=== PATIENT | male | born 1940 | race Caucasian/White ===

== ENCOUNTER → 2016-08-01 | Outpatient (CLI) | payer MEDICARE, OTHER ==
[~2016-08-01] MED LIST: ASPIRIN E.C. 8181 MG PO; PLAVIX 75MG TAB75 MG PO; PRINIVIL20 MG PO; ZOCOR 40MG40 MG PO
== END ==
LOC: COL.RAD 12:45
DX: G31.89 Other specified degenerative diseases of nervous system (principal)

== ENCOUNTER → 2016-10-21 | Outpatient (CLI) | payer MEDICARE, OTHER | LOC: COL.RAD 10:17 | DX: Z13.6 Encounter for screening for cardiovascular disorders (principal) ==

== ENCOUNTER 2017-01-08 13:35 | Emergency (ER) | payer MEDICARE, OTHER ==
[~2017-01-08] VITALS: Ht 180.3 cm; Wt 90.9 kg
[2017-01-08 13:40] VITALS: BP 132/78; TEMP 98.1
[2017-01-08 14:58] LABS: BASO % 0.3 % (0.0-2.0); EOS # 0.1 (0.0-0.7); EOS % 1.2 % (0-4.0); GRAN # 8.9 (1.4-6.5); GRAN % 80.7 % (42.2-75.2); HEMOGLOBIN 15.1 g/dl (13.5-18.0); LYMPH # 1.2 (1.2-3.4); MEAN CELL VOLUME 87 fl (80.0-100.0); MEAN CORPUSCULAR HEMOGLOBIN 30 pg (27.0-31.0); MEAN CORPUSCULAR HGB CONC 34 g/dl (33.0-37.0); MEAN PLATELET VOLUME 10.5 fl (7.4-10.4); MONO # 0.7 (0.1-0.6); MONO % 6.3 % (1.7-9.3); PLATELET COUNT 181 K/mm3 (130-400); RED BLOOD COUNT 5.04 M/mm3 (4.20-5.60)
[2017-01-08 15:07] LABS: PARTIAL THROMBOPLASTIN TIME 25.7 SECONDS (26.0-37.0)
[2017-01-08 15:10] LABS: ADJUSTED CALCIUM 9.3 mg/dL (8.4-10.2); ALANINE AMINOTRANSFERASE 34 U/L (21-72); ALBUMIN 4.2 gm/dL (3.5-5.0); ALKALINE PHOSPHATASE 62 U/L (50-136); ANION GAP 9 mmol/L (7-16); BILIRUBIN,TOTAL 0.6 mg/dL (0.0-1.0); BLOOD UREA NITROGEN 14 mg/dL (9-20); CALCIUM 9.5 mg/dL (8.4-10.2); CARBON DIOXIDE 25 mmol/L (22-30); CHLORIDE 106 mmol/L (98-107); CREATININE, serum 0.99 mg/dL (0.66-1.25); GLUCOSE 97 mg/dL (74-106); POTASSIUM 3.9 mmol/L (3.4-5.0); SODIUM 140 mmol/L (137-145); TOTAL PROTEIN 6.8 gm/dL (6.4-8.2)
[2017-01-08 15:22] LABS: TROPONIN-I < 0.012 ng/mL (0.000-0.034)
[2017-01-08 16:08] VITALS: PULSE 70
== END 2017-01-08 16:09 | disposition home or self-care (01) ==
LOC: COL.ER 13:35
PROVIDERS: Emergency Medicine
DX: S06.0X0A Concussion without loss of consciousness, initial encounter (principal); S46.911A Strain of unspecified muscle, fascia and tendon at shoulder and upper arm level, right arm, initial encounter; I10 Essential (primary) hypertension; E78.5 Hyperlipidemia, unspecified; Z23 Encounter for immunization; Z79.02 Long term (current) use of antithrombotics/antiplatelets; Z98.890 Other specified postprocedural states; W01.198A Fall on same level from slipping, tripping and stumbling with subsequent striking against other object, initial encounter; Y92.009 Unspecified place in unspecified non-institutional (private) residence as the place of occurrence of the external cause

== ENCOUNTER → 2017-10-08 | Outpatient (CLI) | payer MEDICARE, OTHER ==
[2017-10-08 11:35] LABS: CREATININE, serum 0.98 mg/dL (0.66-1.25)
== END ==
LOC: COL.LAB 09:47
PROVIDERS: Family Medicine
DX: R20.0 Anesthesia of skin (principal); Z77.011 Contact with and (suspected) exposure to lead; Z51.81 Encounter for therapeutic drug level monitoring

== ENCOUNTER 2018-10-12 10:12 | Emergency (ER) | payer MEDICARE, OTHER ==
[~2018-10-12] VITALS: Ht 182.9 cm; Wt 95.5 kg
[~2018-10-12 10:12] MED LIST changes: +ZOCOR 20MG20 MG PO; -ZOCOR 40MG40 MG PO
[2018-10-12 10:22] VITALS: TEMP 97
[2018-10-12] MEDS ORDERED: ASPIRIN 81M81 MG/TA2 PO (10:30)
[2018-10-12 11:19] LABS: BASO % 0.5 % (0.0-2.0); EOS # 0.2 (0.0-0.7); EOS % 2.9 % (0-4.0); GRAN # 4.6 (1.4-6.5); GRAN % 69.6 % (42.2-75.2); HEMATOCRIT 42.5 % (42.0-52.0); HEMOGLOBIN 14.6 g/dl (13.5-18.0); LYMPH # 1.2 (1.2-3.4); MEAN CELL VOLUME 86 fl (80.0-100.0); MEAN CORPUSCULAR HEMOGLOBIN 30 pg (27.0-31.0); MEAN CORPUSCULAR HGB CONC 34 g/dl (33.0-37.0); MEAN PLATELET VOLUME 10.2 fl (7.4-10.4); MONO # 0.6 (0.1-0.6); MONO % 8.8 % (1.7-9.3); PLATELET COUNT 172 K/mm3 (130-400); RED BLOOD COUNT 4.92 M/mm3 (4.20-5.60); REDCELL DISTRIBUTION WIDTH-CV 12.7 % (11.5-14.5)
[2018-10-12 11:33] LABS: ALBUMIN 3.8 gm/dL (3.5-5.0); BILIRUBIN,TOTAL 0.6 mg/dL (0.0-1.0); CALCIUM 9.3 mg/dL (8.4-10.2); CREATININE, serum 0.92 (0.66-1.25); POTASSIUM 4.1 mmol/L (3.4-5.0); TOTAL PROTEIN 6.3 gm/dL (6.4-8.2)
[2018-10-12 11:51] VITALS: BP 128/81; PULSE 69
== END 2018-10-12 11:56 | disposition home or self-care (01) ==
LOC: COL.ER 10:12
PROVIDERS: Family Medicine
DX: S01.01XA Laceration without foreign body of scalp, initial encounter (principal); R40.2412 Glasgow coma scale score 13-15, at arrival to emergency department; Z79.82 Long term (current) use of aspirin; Z23 Encounter for immunization; W10.9XXA Fall (on) (from) unspecified stairs and steps, initial encounter; W22.8XXA Striking against or struck by other objects, initial encounter; Y92.009 Unspecified place in unspecified non-institutional (private) residence as the place of occurrence of the external cause

== ENCOUNTER 2018-10-19 08:37 | Emergency (ER) | payer MEDICARE, OTHER ==
[~2018-10-19 08:37] MED LIST changes: +ASPIRIN 81M81 MG/TA2 PO
[2018-10-19 08:40] VITALS: BP 122/72; PULSE 70; TEMP 97.6
== END 2018-10-19 08:53 | disposition home or self-care (01) ==
LOC: COL.ER 08:37
DX: S01.91XD Laceration without foreign body of unspecified part of head, subsequent encounter (principal); X58.XXXD Exposure to other specified factors, subsequent encounter

== ENCOUNTER 2020-08-29 15:45 | Outpatient (RCR) | payer MEDICARE, OTHER ==
[2020-09-05] MEDS ORDERED: SINEMET 25/101 UDTAB PO (09:09)
[2020-09-05] MEDS ORDERED: PROSCAR 5MG5 MG PO (09:10)
[2020-09-05] MEDS ORDERED: EXELON PAT4.6 MG/24 TD (09:11)
[2020-09-07] MEDS ORDERED: PROSCAR 5MG5 MG PO (13:36)
[2020-09-07] MEDS ORDERED: FLOMAX 0.40.4 MG/CAP PO (13:36)
== END 2020-10-28 | disposition home or self-care (01) ==
LOC: MKS.ESL.PT
DX: G20 Parkinson's disease (principal)

== ENCOUNTER 2020-09-05 08:42 | Inpatient (IN) | payer MEDICARE, OTHER ==
[2020-09-05] VITALS (10 sets, daily range): BP systolic 120–138; BP diastolic 66–78; PULSE 83–91; TEMP 97.5–97.7
[~2020-09-05] VITALS: Ht 182.9 cm; Wt 98.6 kg
[2020-09-05] MEDS ORDERED: SINEMET 25/101 UDTAB PO (09:09)
[2020-09-05] MEDS ORDERED: PROSCAR 5MG5 MG PO (09:10)
[2020-09-05] MEDS ORDERED: EXELON PAT4.6 MG/24 TD (09:11)
[2020-09-05 10:48] LABS: BASO % 0.2 % (0.0-2.0); EOS # 0.1 (0.0-0.7); EOS % 0.4 % (0-4.0); GRAN % 83.3 % (42.2-75.2); HEMATOCRIT 45.2 % (42.0-52.0); HEMOGLOBIN 15.3 g/dl (13.5-18.0); LYMPH # 1.6 (1.2-3.4); LYMPH % 8.1 % (20.0-51.0); MEAN CELL VOLUME 88 fl (80.0-100.0); MEAN CORPUSCULAR HEMOGLOBIN 30 pg (27.0-31.0); MEAN CORPUSCULAR HGB CONC 34 g/dl (33.0-37.0); MEAN PLATELET VOLUME 10.4 fl (7.4-10.4); MONO # 1.4 (0.1-0.6); MONO % 7.4 % (1.7-9.3); PLATELET COUNT 174 K/mm3 (130-400); RED BLOOD COUNT 5.13 M/mm3 (4.20-5.60); REDCELL DISTRIBUTION WIDTH-CV 13.4 % (11.5-14.5)
[2020-09-05 11:02] LABS: INR 1.3 (0.8-3.0); PROTHROMBIN TIME 14.2 SECONDS (9.7-12.8)
[2020-09-05 11:06] LABS: ALANINE AMINOTRANSFERASE 7 U/L (4-49); ALKALINE PHOSPHATASE 73 U/L (50-136); ANION GAP 5 mmol/L (7-16); AST,SGOT 22 U/L (15-37); BILIRUBIN,TOTAL 1.8 mg/dL (0.0-1.0); BLOOD UREA NITROGEN 13 mg/dL (9-20); CALCIUM 9.2 mg/dL (8.4-10.2); CARBON DIOXIDE 26 mmol/L (22-30); CHLORIDE 103 mmol/L (98-107); CREATININE, serum 1.11 (0.66-1.25); GLUCOSE 116 mg/dL (74-106); POTASSIUM 3.9 mmol/L (3.4-5.0); SODIUM 134 mmol/L (137-145); TOTAL PROTEIN 6.9 gm/dL (6.4-8.2)
[2020-09-05 11:16] LABS: COLLECTION METHOD CLEAN CATCH
[2020-09-05 11:26] LABS: TROPONIN-I < 0.012 ng/mL (0.000-0.035)
[2020-09-05 11:30] LABS: PH 7 (5-8); SQUAMOUS EPITHELIAL None Seen /hpf; URINE APPEARANCE Clear; URINE BACTERIA None Seen /hpf; URINE BILIRUBIN Negative (NEGATIVE); URINE BLOOD Negative (NEGATIVE); URINE COLOR Yellow; URINE GLUCOSE 2+ (NEGATIVE); URINE KETONE Negative (NEGATIVE); URINE LEUKOCYTE ESTERASE Negative (NEGATIVE); URINE NITRATE Negative (NEGATIVE); URINE PROTEIN(semi-quant) Negative (NEGATIVE); URINE RBC 0-2 /hpf; URINE UROBILINOGEN Negative (NEGATIVE)
[2020-09-05 11:34] LABS: MUCOUS Present /lpf
[2020-09-05 11:50] LABS: C-REACTIVE PROTEIN 25.9 mg/dL (0.0-0.9)
[2020-09-05 11:58] LABS: LIPASE 57 U/L (23-300)
--- NOTE | 2020-09-05 15:30 | NUR ---
Patient arrives from PACU, is medicated and sleepy, VS stable, no pain, nausea or vomiting. Yin in place with few output and with some small bloody tissue. Patient reacts to his name and follows comands but looks tired and come back to sleep. Spouse is in the room. 3 incitions dry and clean with bandaids. O2 on 2L oxygen saturation at 97. No further needs at the moment. Call light within reach.
--- NOTE | 2020-09-05 18:23 | NUR ---
PT TO ROOM 317 PER BED WITH REPORT FROM YUVAL JOVEL PACU @1530 TO MAKENZIE JOVEL. PT IS DROWSEY AROUSES TO VERBAL. ASSESSMENTS COMPLETED BY MAKENZIE AND CHARTED. IV TO PUMP PER ORDERS.
[2020-09-06] VITALS (7 sets, daily range): BP systolic 110–129; BP diastolic 57–78; PULSE 56–83; TEMP 97.3–98.3
--- NOTE | 2020-09-06 07:04 | NUR ---
PT SLEPT MOST OF THE NIGHT, PT DENIED PAIN. INCISION SITE CLEAN, DRY, INTACT. FLUIDS CURRENTLY INFUSING AT 75ML/HR TO LEFT HAND IV. PT JEFFERS PATENT AND FREE OF OBSTRUCTION. PT WAS TOO TIRED TO AMBULATE, THIS NURSE ENCOURAGED PT TO AMBULATE. PT EXPRESSES NO ADDITIONAL NEEDS AT THIS TIME. CALL LIGHT WITHIN REACH.
[2020-09-06 07:14] LABS: BASO % 0.1 % (0.0-2.0); EOS % 0.1 % (0-4.0); GRAN % 87.2 % (42.2-75.2); HEMATOCRIT 42.5 % (42.0-52.0); HEMOGLOBIN 14.5 g/dl (13.5-18.0); LYMPH % 6.9 % (20.0-51.0); MEAN CELL VOLUME 88 fl (80.0-100.0); MEAN CORPUSCULAR HEMOGLOBIN 30 pg (27.0-31.0); MEAN CORPUSCULAR HGB CONC 34 g/dl (33.0-37.0); MEAN PLATELET VOLUME 10.9 fl (7.4-10.4); MONO # 0.8 (0.1-0.6); MONO % 5.1 % (1.7-9.3); PLATELET COUNT 159 K/mm3 (130-400); RED BLOOD COUNT 4.85 M/mm3 (4.20-5.60); REDCELL DISTRIBUTION WIDTH-CV 13.2 % (11.5-14.5)
[2020-09-06 07:22] LABS: ALBUMIN 3.3 gm/dL (3.5-5.0); CALCIUM 8.8 mg/dL (8.4-10.2); CREATININE, serum 1.04 (0.66-1.25); POTASSIUM 3.8 mmol/L (3.4-5.0); TOTAL PROTEIN 6.1 gm/dL (6.4-8.2)
--- NOTE | 2020-09-06 10:38 | NUR ---
Assessment completed, alert/oriented, vital signs stable, denies pain but does report some tenderness with coughing/sneezing, insturcted patient and family on splinting with pillow, incision sites look good/ no redness or drainage, heart RRR, lungs CTA, patient has been up with PT ambulated in [facility], has been by to eval patient, no new orders at thistime, present in room and patient ate a good breakfast, will continue to monitor
--- NOTE | 2020-09-06 13:02 | NUR ---
Several visit attempts; Cotton Picking Machine Operator spoke with patient's who thanked Cotton Picking Machine Operator for checking up on them and stated that she heard "Morning Prayer' said over our intercom yesterday when they were taking 'Tyson' into surgery and it was very comforting to her. She thanked Cotton Picking Machine Operator for this morning's prayer also. Patient sleeping.
--- NOTE | 2020-09-06 19:30 | NUR ---
Received report from Will. Patient just came back from the bathroom assisted by his . reported he had soft formed stools. Gown was changed. Repositioned patient in bed.
--- NOTE | 2020-09-07 01:32 | NUR ---
Report received from BECKA Castillo. Patient resting in bed with eyes closed. No acute distress noted. Call light within reach.
[2020-09-07 04:22] VITALS: BP 134/70; PULSE 61; TEMP 97.4
[2020-09-07 08:03] VITALS: BP 113/56; PULSE 69; TEMP 98.1
--- NOTE | 2020-09-07 09:45 | NUR ---
Shift assessment complete. Pt lying in bed, at bedside. Alert and oriented x3. Heart RRR. Lungs CTA. Reports mild pain to incision sites. Lap phillip sites x3 CDI covered by bandaids. Denies other needs. Continuing to monitor.
[2020-09-07 11:59] VITALS: BP 118/52; PULSE 68; TEMP 98
[2020-09-07] MEDS ORDERED: PROSCAR 5MG5 MG PO (13:36)
[2020-09-07] MEDS ORDERED: FLOMAX 0.40.4 MG/CAP PO (13:36)
--- NOTE | 2020-09-07 14:15 | NUR ---
food counter worker attended clinical rounds with the team. The patient's Georgina present. The patient to discharge home today, 09/07 with [facility], fdc services. Following rounds, TODD met with the patient to complete intake. The patient lives in [place] with Georgina. The patient has a life chair and cane. The patient receives assistance with ADLs from Georgina. The patient's PCP is Dr. Haynes with the Red Team at the [facility]. The patient receives medications from the [facility]. The patient does not have advanced directives in the EMR but states they are complete. The patient is currently going to [facility] for OP PT. The patient will leave his hensley in and follow up with urology on an outpatient basis. TODD discuss having a nurse from [facility] following along until the appointment. TODD presented Medicare.gov's list of agencies. [facility] chosen. Referral faxed. TODD contacted Madelin with [facility] and she reports there should be no problem taking the patient. The patient may have to put thier OP PT on hold for a while. Her team will evaluate for PT needs. TODD faxed discharge orders. There are no additional needs at this time. *Discharge disposition: Home with [facility], fdc*
--- NOTE | 2020-09-07 15:00 | NUR ---
Discharge instructions and hensley care discussed w/pt and , all questions answered. IV to left hand removed, tip intact. Pt escorted out by wheelchair and assisted into car w/all belongings.
== END 2020-09-07 15:10 | disposition home or self-care (01) | DRG 417 ==
LOC: COL.ER 08:42 → MEDICAL 12:07
PROVIDERS: Emergency Medicine; Physician Assistant; ADMIT Surgery
PROC: BF121ZZ Fluoroscopy of Gallbladder using Low Osmolar Contrast (ICD-10-PCS; 2020-09-05)
PROC: 0FT44ZZ Resection of Gallbladder, Percutaneous Endoscopic Approach (ICD-10-PCS; principal; 2020-09-05 13:30)
DX: K80.00 Calculus of gallbladder with acute cholecystitis without obstruction (principal); G93.41 Metabolic encephalopathy; F02.81 Dementia in other diseases classified elsewhere, unspecified severity, with behavioral disturbance; E78.5 Hyperlipidemia, unspecified; Z66 Do not resuscitate; G20 Parkinson's disease; N40.1 Benign prostatic hyperplasia with lower urinary tract symptoms; R33.8 Other retention of urine
CPT/HCPCS: 99223; 99231-AI; 99232-AI; G0378; J0330; J2270; J2405; J2543; J2704; J3010; J7030; J7120; Q9967

== ENCOUNTER 2020-09-26 00:10 | Emergency (ER) | payer MEDICARE, OTHER ==
[~2020-09-26] VITALS: Ht 180.3 cm; Wt 97.7 kg
[~2020-09-26 00:10] MED LIST changes: +EXELON PAT4.6 MG/24 TD; +FLOMAX 0.40.4 MG/CAP PO; +PROSCAR 5MG5 MG PO; +SINEMET 25/101 UDTAB PO
[2020-09-26 01:22] VITALS: BP 119/76; PULSE 71; TEMP 98.5
== END 2020-09-26 01:22 | disposition home or self-care (01) ==
LOC: COL.ER 00:10
DX: R33.9 Retention of urine, unspecified (principal); N40.0 Benign prostatic hyperplasia without lower urinary tract symptoms; G20 Parkinson's disease; F02.80 Dementia in other diseases classified elsewhere, unspecified severity, without behavioral disturbance, psychotic disturbance, mood disturbance, and anxiety; Z79.899 Other long term (current) drug therapy

== ENCOUNTER 2020-11-02 07:54 | Day surgery (SDC) | payer MEDICARE, OTHER ==
[2020-11-02] VITALS (10 sets, daily range): BP systolic 118–153; BP diastolic 58–80; PULSE 56–84; TEMP 97.2–97.9
[~2020-11-02] VITALS: Ht 180.3 cm; Wt 90.1 kg
[2020-11-02] MEDS ORDERED: EXELON9.5 MG/24 TD (09:16)
[2020-11-02] MEDS ORDERED: SF 5000 PLUS1.1% DT (09:17)
[2020-11-02] MEDS ORDERED: PHARMASSURE ZIN50 MG PO (09:18)
[2020-11-02] MEDS ORDERED: PHARMASSURE MA500 MG PO (09:18)
--- NOTE | 2020-11-02 12:00 | NUR ---
PATIENT IS DROWSY AND HAS A HX OF DEMENTIA & PARKINSONS. AT BEDSIDE. VSS. PATIENT APPEARS TO BE COMFORTABLE WITH NO COMPLAINTS. JEFFERS TO DD WITH CBI INFUSING AT MOD RATE. URINE IS CLEAR, PEACH COLOR WITH NO CLOTS NOTED. IV FLUIDS INFUSING INTO LEFT HAND IV. HEAD TO TOE ASSESSMENT COMPLETE. CALL LIGHT IN REACH.
--- NOTE | 2020-11-02 13:30 | NUR ---
Pt is awake with eyes open et sitting semi-fowlers in bed, @ bedside. Pt is responsive but confused, is unable to state what town he is in et states his birthday incorrectly. states that this is his normal with his hx of dementia. Sometimes he remembers et sometimes he does not. Pt is cooperative et pleasant. Pt's sensation is intact down to bilateral lower legs, denies having sensation in his feet when tested. Pt et educated on diet et ordering food, given ice water to drink. Call light is within reach, no other needs @ this time.
--- NOTE | 2020-11-02 18:50 | NUR ---
RECEIVED CHANGE OF SHIFT REPORT FROM DAY SHIFT NURSE. AT BEDSIDE DURING REPORT. PATIENT RESTING WITH CBI RUNNING RAPID WITH OUTPUT VARYING FROM LIGHT PINK WITH RED SEDIMENT AND STRINGY CLOTS TO RED. DRESSING TO MEATUS RED/SATURATED. OBSERVED PATIENT WITH WHISPERED SPEECH.
--- NOTE | 2020-11-02 22:47 | NUR ---
PATIENT REPOSITIONED ONTO RIGHT SIDE, WITH PATIENT COOPERATIVE AT THIS TIME. CBI WITH JEFFERS IN PLACE AND DRAINING LIGHT RED WITH OCCASIONAL STRINGY CLOTS TO LIGHT RED COLORED URINE TO LIGHT PINK. PATIENT SWALLOWED PILLS WITH NO PROBLEMS, ONE PILL AT A TIME. PATIENT CONTINUES TO WHISPER WITH SPEAKING OBSERVED EARLIER IN SHIFT CHANGE REPORT.
--- NOTE | 2020-11-02 22:55 | NUR ---
CBI OUTPUT CURRENTLY MEDIUM YELLOW WITH RED SEDIMENT, NO CLOTS OBSERVED AT THIS TIME. CBI RATE CONTINUES AT RAPID RATE.
[2020-11-03] VITALS (7 sets, daily range): BP systolic 118–147; BP diastolic 62–75; PULSE 66–86; TEMP 97.3–98.7
--- NOTE | 2020-11-03 01:42 | NUR ---
RECEIVED REPORT FROM ED RNCLAUDIA. AWAITING PATIENT ARRIVAL TO ROOM 328 FOR ADMIT
--- NOTE | 2020-11-03 06:49 | NUR ---
CHANGE OF SHIFT REPORT GIVEN TO DAY SHIFT NURSE, CHRISTELLE JOVEL.
--- NOTE | 2020-11-03 11:16 | NUR ---
IN TO SEE PT FOR DR. THORNTON.
--- NOTE | 2020-11-03 14:46 | NUR ---
JEFFERS CATHETER PRIMED AND PULLED, 30 MLS REMOVED FROM BALLOON, PERICARE PROVIDED PT TOLERATED WELL. INSTUCTED AND PT ON 6 BOTTLE ROUTINE. VERBALIZED UNDERSTANDING.
--- NOTE | 2020-11-03 16:17 | NUR ---
Plan to return home with as care support Alanis [phone]. SW met with patient and in room. Patient gave permission to talk with about care. also reports that she is DPOA with forms on file. indicated that patient has dementia and parkinson. Patient indicated that pcp is Dr. Jaime and the [facility] [place]. Patient idnciated that she does not need Home health but want respite care. SW educated on Respite supports and Home health. Patient has a CPAP but does not like to use. Patient uses a walker or cane but generally nothing. Patient also sees Dr. Hanna and Dante. Denies having any other concerns. Will follow for care support.s
--- NOTE | 2020-11-03 16:53 | NUR ---
PT VOIDED 300 MLS DARK RED.
[2020-11-04 02:44] VITALS: BP 136/81; PULSE 75; TEMP 98.4
--- NOTE | 2020-11-04 05:59 | NUR ---
PATIENT ALERT AND ORIENTED TO SELFFORGETFUL. VSS. VOIDED CRAMBERRY COLOR URINE WITH SOME CLOTH. PATIENT PULL OUT HIS IV ACCESS, NEW IV ACCES PLACED ON R HAND. NO RESPIRATON POR DISTRESS NOTED. BED ALARM IN PLACE, IN LOW POSITION AND LOCKED. CALL LIGHT WITHIN REACH. WILL CONTINUE TO MONITOR.
[2020-11-04 08:55] VITALS: BP 113/60; PULSE 70; TEMP 98.2
--- NOTE | 2020-11-04 10:34 | NUR ---
PT RESTING IN BED. PT INCONTINENT OF URINE, EATING AND DRINKING. AM MEDS GIVEN. PT'S AT BEDSIDE ASSISTING WITH CARE.
--- NOTE | 2020-11-04 11:07 | NUR ---
PT VOIDED AT BEDSIDE STANDING WITH URINAL AND SUPPORT X2. 600 MLS DARK BURGUNDY URINE VOIDED. PT THEN RETURNED TO BED WITH BEDALARMS RESET. PT TOLERATED WELL.
[2020-11-04 11:45] VITALS: BP 111/59; PULSE 65; TEMP 98.6
--- NOTE | 2020-11-04 15:07 | NUR ---
DISCHARGE INSTRUCTIONS REVIEWED WITH . QUESTIONS ANSWERED. PT OUT TO POV PER WHEEL CHAIR.
== END 2020-11-04 15:09 | disposition home or self-care (01) ==
LOC: SDCO 07:54 → SURG 11:55 → SDCO 11-04 15:09
DX: N40.1 Benign prostatic hyperplasia with lower urinary tract symptoms (principal); R33.9 Retention of urine, unspecified; F03.90 Unspecified dementia, unspecified severity, without behavioral disturbance, psychotic disturbance, mood disturbance, and anxiety; E78.00 Pure hypercholesterolemia, unspecified; G20 Parkinson's disease; Z79.899 Other long term (current) drug therapy; Z20.828 Contact with and (suspected) exposure to other viral communicable diseases; G89.29 Other chronic pain; G25.81 Restless legs syndrome
CPT/HCPCS: OP; J0690; J2704; J7120

== ENCOUNTER 2021-03-12 15:00 | Outpatient (RCR) | payer OTHER, MEDICARE ==
[~2021-03-12 15:00] MED LIST changes: +EXELON9.5 MG/24 TD; +PHARMASSURE MA500 MG PO; +PHARMASSURE ZIN50 MG PO; +SF 5000 PLUS1.1% DT
== END 2021-03-15 | disposition still patient (30) ==
LOC: MKS.ESL.PT
DX: G20 Parkinson's disease (principal)

== ENCOUNTER → 2021-08-01 13:02 | Outpatient (RCR) | payer MEDICARE, OTHER ==
[~2021-08-01 13:02] MED LIST changes: +EXELON13.3TDM; +LEVAQUIN 5500 MG/TA1 PO
== END | disposition home or self-care (01) ==
LOC: MKS.ESL.PT 04-16 13:45
DX: R26.89 Other abnormalities of gait and mobility (principal)

== ENCOUNTER 2021-08-01 13:03 | Outpatient (RCR) | payer OTHER, MEDICARE ==
[~2021-08-01 13:03] MED LIST changes: -EXELON13.3TDM; -LEVAQUIN 5500 MG/TA1 PO
== END 2021-08-01 13:04 | disposition home or self-care (01) ==
LOC: MKS.ESL.PT 13:03
DX: G20 Parkinson's disease (principal)

== ENCOUNTER 2021-08-30 14:10 | Emergency (ER) | payer OTHER, MEDICARE ==
[~2021-08-30] VITALS: Ht 180.3 cm; Wt 90.9 kg
[2021-08-30 14:18] VITALS: TEMP 98
[2021-08-30 15:01] LABS: BASO % 0.2 % (0.0-2.0); EOS # 0.2 K/mm3 (0.0-0.7); GRAN # 6.9 K/mm3 (1.4-6.5); GRAN % 75.2 % (42.2-75.2); HEMATOCRIT 40.8 % (42.0-52.0); HEMOGLOBIN 14.1 g/dl (13.5-18.0); LYMPH # 1.2 K/mm3 (1.2-3.4); LYMPH % 13.1 % (20.0-51.0); MEAN CELL VOLUME 87 fl (80.0-100.0); MEAN CORPUSCULAR HEMOGLOBIN 30 pg (27-31); MEAN CORPUSCULAR HGB CONC 35 g/dl (33.0-37.0); MEAN PLATELET VOLUME 10.2 fl (7.4-10.4); MONO # 0.8 K/mm3 (0.1-0.6); MONO % 9.2 % (1.7-9.3); PLATELET COUNT 183 K/mm3 (130-400); RED BLOOD COUNT 4.69 M/mm3 (4.20-5.60); REDCELL DISTRIBUTION WIDTH-CV 13.2 % (11.5-14.5)
[2021-08-30] MEDS ORDERED: EXELON13.3TDM (15:01)
[2021-08-30 15:21] LABS: ALANINE AMINOTRANSFERASE 12 U/L (0-55); ALBUMIN 3.3 gm/dL (3.4-4.8); ALKALINE PHOSPHATASE 78 U/L (40-150); ANION GAP 10 mmol/L (7-16); AST,SGOT 11 U/L (5-34); BILIRUBIN,TOTAL 0.8 mg/dL (0.2-1.2); BLOOD UREA NITROGEN 11 mg/dL (8-26); CALCIUM 8.5 mg/dL (8.4-10.2); CARBON DIOXIDE 23 mmol/L (23-31); CHLORIDE 107 mmol/L (98-107); CREATININE, serum 0.95 mg/dL (0.72-1.25); GLUCOSE 153 mg/dL (70-99); POTASSIUM 3.6 mmol/L (3.5-4.5); SODIUM 140 mmol/L (136-145); TOTAL PROTEIN 5.9 gm/dL (6.2-8.1)
[2021-08-30 16:23] LABS: COLLECTION METHOD CLEAN CATCH
[2021-08-30 16:43] LABS: MUCOUS Present (NOT PRESENT); PH 7 (5-8); SQUAMOUS EPITHELIAL None Seen /hpf (0-10); URINE APPEARANCE Turbid (CLEAR/HAZY); URINE BACTERIA None Seen /hpf (NONE SEEN); URINE BILIRUBIN Negative (NEGATIVE); URINE BLOOD 2+ (NEGATIVE); URINE COLOR Yellow (YELLOW); URINE GLUCOSE Negative (NEGATIVE); URINE KETONE Negative (NEGATIVE); URINE LEUKOCYTE ESTERASE 3+ (NEGATIVE); URINE NITRATE Positive (NEGATIVE); URINE PROTEIN(semi-quant) 1+ (NEGATIVE); URINE UROBILINOGEN Negative (NEGATIVE)
[2021-08-30] MEDS ORDERED: LEVAQUIN 5500 MG/TA1 PO (17:13)
[2021-08-30 17:16] VITALS: BP 146/77; PULSE 70
== END 2021-08-30 17:20 | disposition home or self-care (01) ==
LOC: COL.ER 14:10
PROVIDERS: Physician Assistant
DX: N39.0 Urinary tract infection, site not specified (principal); Z20.822 Contact with and (suspected) exposure to COVID-19; Z28.310 Unvaccinated for COVID-19
CPT/HCPCS: J0696; J7030

== ENCOUNTER 2021-11-05 10:41 | Day surgery (SDC) | payer MEDICARE, OTHER ==
[~2021-11-05] VITALS: Ht 180.3 cm; Wt 86.4 kg
[~2021-11-05 10:41] MED LIST changes: +EXELON13.3TDM; +LEVAQUIN 5500 MG/TA1 PO
[2021-11-05 11:52] VITALS: BP 139/77; PULSE 69; TEMP 97.7
[2021-11-05 13:10] VITALS: BP 136/67; PULSE 71; TEMP 97.9
--- NOTE | 2021-11-05 13:35 | NUR ---
1310-VS OBTAINED. PT RESTING COMFORTABLY. 1320-DISCHARGE EDUCATION COMPLETED WITH PT'S . VERBALIZED UNDERSTANDING OF HOME AND FOLLOW UP CARE. ALL QUESTIONS ANSWERED. DISCHARGE PAPERWORK GIVEN TO THE . 1335-PT OFF UNIT PER PERSONAL WHEELCHAIR. PT DISCHARGED TO HOME WITH HIS PER PERSONAL VEHICLE.
== END 2021-11-05 13:35 | disposition home or self-care (01) ==
LOC: SDCO 10:41
DX: N30.00 Acute cystitis without hematuria (principal); N39.42 Incontinence without sensory awareness

== ENCOUNTER 2022-06-06 21:14 | Emergency (ER) | payer MEDICARE, OTHER ==
[~2022-06-06] VITALS: Ht 177.8 cm; Wt 86.4 kg
[2022-06-06 21:38] VITALS: BP 120/66; TEMP 97.6
[2022-06-06 22:29] LABS: COLLECTION METHOD CATHETER
[2022-06-06 22:38] LABS: MUCOUS Present (NOT PRESENT); SQUAMOUS EPITHELIAL None Seen /hpf (0-10); URINE BACTERIA Moderate /hpf (NONE SEEN)
[2022-06-06 22:40] LABS: URINE APPEARANCE Cloudy (CLEAR/HAZY); URINE BLOOD 1+ (NEGATIVE); URINE COLOR Yellow (YELLOW); URINE GLUCOSE Negative (NEGATIVE); URINE KETONE Negative (NEGATIVE); URINE NITRATE Positive (NEGATIVE); URINE PROTEIN(semi-quant) TRACE (NEGATIVE); URINE UROBILINOGEN 0.2 E.U/dL (0.2-1.0)
[2022-06-06] MEDS ORDERED: CIPRO 500MG TA500 MG PO (22:50)
[2022-06-06 23:16] VITALS: PULSE 72
== END 2022-06-06 23:16 | disposition home or self-care (01) ==
LOC: COL.ER 21:14
PROVIDERS: Emergency Medicine
DX: N39.0 Urinary tract infection, site not specified (principal); R33.9 Retention of urine, unspecified; Z28.310 Unvaccinated for COVID-19

== ENCOUNTER 2022-08-12 09:50 | Day surgery (SDC) | payer MEDICARE, OTHER ==
[~2022-08-12] VITALS: Ht 180.3 cm; Wt 77.3 kg
[2022-08-12] VITALS (7 sets, daily range): BP systolic 117–141; BP diastolic 62–73; PULSE 58–65; TEMP 97–97.7
[~2022-08-12 09:50] MED LIST changes: +CIPRO 500MG TA500 MG PO; +OMNICEF 300MG300 MG PO
--- NOTE | 2022-08-12 13:10 | NUR ---
1310 PATIENT RETURNS TO ROOM 4 VIA CART. PATIENT IS DROWSY, BUT ALERTS TO VERBAL STIMULI. PT IN ROOM. RESPIRATIONS EVEN AND UNLABORED, ON ROOM AIR. VITAL SIGNS OBTAINED. SCANT AMOUNT OF BLOODY DRAINAGE TO BANDAGE SURROUNDING SUPRAPUBIC CATHETER. URINE IN CATHETER IS FUENTES RED IN COLOR, WITH NO CLOTS NOTED. PATIENT DOES NOT APPEAR TO BE IN ANY DISTRESS. PT DOES NOT WANT ANYTHING TO EAT OR DRINK AT THIS TIME. 1410 THIS NURSE DISCONTINUED IV FROM RIGHT HAND WITH NO COMPLICATONS. IV CATHETER INTACT. 1430 DISCHARGE INSTRUCTIONS REVIEWED WITH PATIENT AND PATIENT . PATIENT IS DPOA AND SIGNED FOR PATIENT. 1435 PATIENT DISCHARGES FROM UNIT VIA WHEELCHAIR TO TRANSPORTATION SERVICE BACK TO [facility] IN STABLE CONDITION.
== END 2022-08-12 14:35 ==
LOC: SDCO 09:50
DX: R33.8 Other retention of urine (principal); N39.0 Urinary tract infection, site not specified; N39.42 Incontinence without sensory awareness; F03.90 Unspecified dementia, unspecified severity, without behavioral disturbance, psychotic disturbance, mood disturbance, and anxiety; Z28.310 Unvaccinated for COVID-19
CPT/HCPCS: C1769; C1894; J0690; J1100; J2405; J2704; J3010; J7120

== ENCOUNTER → 2022-12-29 | Outpatient (REF) | payer MEDICARE, OTHER ==
[2022-12-29 18:01] LABS: COLLECTION METHOD CATHETER
[2022-12-29 18:45] LABS: PH 6.5 (5.0-8.5); SQUAMOUS EPITHELIAL None Seen /hpf (0-10); URINE APPEARANCE Turbid (CLEAR/HAZY); URINE BLOOD 3+ (NEGATIVE); URINE COLOR Amber (YELLOW); URINE GLUCOSE Negative (NEGATIVE); URINE KETONE TRACE (NEGATIVE); URINE NITRATE Negative (NEGATIVE); URINE PROTEIN(semi-quant) 3+ (NEGATIVE); URINE RBC >50 /hpf (0-2); URINE UROBILINOGEN 0.2 E.U/dL (0.2-1.0); URINE WBC >50 /hpf (0-2)
[2022-12-29 18:46] LABS: URINE BACTERIA Moderate /hpf (NONE SEEN)
== END ==
LOC: ZCOL.LAB 17:04
PROVIDERS: Urology
DX: R31.9 Hematuria, unspecified (principal)

== ENCOUNTER → 2023-01-16 | Outpatient (CLI) | payer MEDICARE, OTHER ==
[2023-01-16 13:08] LABS: ALBUMIN 2.7 gm/dL (3.4-4.8); BILIRUBIN,TOTAL 0.4 mg/dL (0.2-1.2); CALCIUM 8.5 mg/dL (8.4-10.2); CREATININE, serum 0.78 mg/dL (0.72-1.25); POTASSIUM 4.3 mmol/L (3.5-4.5); THYROID STIMULATING HORMONE 1.776 uIU/mL (0.350-4.940); TOTAL PROTEIN 5.8 gm/dL (6.2-8.1)
[2023-01-16 13:13] LABS: BASO % 0.3 % (0.0-2.0); EOS # 0.4 K/mm3 (0.0-0.7); EOS % 4.3 % (0.0-4.0); GRAN % 70.9 % (42.2-75.2); HEMATOCRIT 39.4 % (42.0-52.0); HEMOGLOBIN 12.8 g/dl (13.5-18.0); LYMPH # 1.7 K/mm3 (1.2-3.4); LYMPH % 17.4 % (20.0-51.0); MEAN CELL VOLUME 91 fl (80.0-100.0); MEAN CORPUSCULAR HEMOGLOBIN 29 pg (27-31); MEAN CORPUSCULAR HGB CONC 33 g/dl (33.0-37.0); MEAN PLATELET VOLUME 9.8 fl (7.4-10.4); MONO # 0.7 K/mm3 (0.1-0.6); MONO % 6.6 % (1.7-9.3); PLATELET COUNT 246 K/mm3 (130-400); RED BLOOD COUNT 4.35 M/mm3 (4.20-5.60); REDCELL DISTRIBUTION WIDTH-CV 14.3 % (11.5-14.5)
== END ==
LOC: ZCOL.LAB 13:04
PROVIDERS: Internal Medicine
DX: E78.5 Hyperlipidemia, unspecified (principal); N39.0 Urinary tract infection, site not specified

== ENCOUNTER → 2023-04-10 | Outpatient (CLI) | payer MEDICARE, OTHER | LOC: ZCOL.LAB 13:48 | DX: L08.9 Local infection of the skin and subcutaneous tissue, unspecified (principal) ==